=== PATIENT | male | born 1995 | race Caucasian/White ===

== ENCOUNTER 2019-03-21 14:19 | Inpatient (IN) | payer OTHER ==
[~2019-03-21] VITALS: Ht 177.8 cm; Wt 68.2 kg
[2019-03-21] MEDS ORDERED: LORazepam 1 MG TABLET PO ONE (15:00)
[2019-03-21 15:34] LABS: BASOPHILS % (AUTO) 0.9 % (0.0-2.0); HEMATOCRIT 51.7 % (41-53); HEMOGLOBIN 17.5 g/dL (13.5-17.5); LYMPHOCYTES # (AUTO) 1.4 K/uL (1.0-4.8); LYMPHOCYTES % (AUTO) 29.1 % (22.0-44.0); MEAN CORPUSCULAR HGB CONC 33.7 G/dL (31.0-37.0); MEAN CORPUSCULAR VOLUME 92 fL (80-100); MONOCYTES # (AUTO) 0.5 K/uL (0.1-1.0); MONOCYTES % (AUTO) 10.4 % (2.0-9.0); NEUTROPHILS # (AUTO) 2.8 K/uL (1.8-7.7); NEUTROPHILS % (AUTO) 57.6 % (40.0-70.0); PLATELET COUNT (AUTO) 355 K/uL (150-450); RED BLOOD CELL COUNT(AUTO) 5.63 MIL/uL (4.50-5.90)
[2019-03-21 15:41] LABS: INR 1.1 (0.9-1.1); PROTHROMBIN TIME 11.2 SEC (9.4-11.6)
[2019-03-21 15:46] LABS: ANION GAP 6 mmol/L (8-16); CALCIUM, TOTAL 9.7 mg/dL (8.8-10.5); CARBON DIOXIDE 31 mmol/L (22-29); CHLORIDE 104 mmol/L (98-107); CREATININE 1.04 mg/dL (0.60-1.30); GLOMERULAR FILTR. RATE CALC > 60 mL/min (>60); GLUCOSE,RANDOM 77 mg/dL (70-110); POTASSIUM 4.3 mmol/L (3.5-5.1); SODIUM SERUM 141 mmol/L (136-145); UREA NITROGEN, BLOOD 10 mg/dL (7-18)
[2019-03-21 15:57] LABS: B-TYPE NATRIURETIC PEPTIDE < 5 pg/mL (0-100)
[2019-03-21 16:12] LABS: ALANINE AMINOTRANSFERASE 21 U/L (12-78); ALBUMIN 4.7 g/dL (3.4-5.0); ALKALINE PHOSPHATASE 58 U/L (46-116); ASPARTATE AMINOTRANSFERASE 17 U/L (15-37); BILIRUBIN,TOTAL 2.2 mg/dL (0.1-1.0); CREATINE KINASE, TOTAL ONLY 131 U/L (39-308); TOTAL PROTEIN, SERUM 8.4 g/dL (6.4-8.2)
[2019-03-21] MEDS ORDERED: SODIUM CHLORIDE 0.9% 1,000 ML IV ONE (16:15)
[2019-03-21] MEDS ORDERED: LORazepam 1 MG TABLET PO PRN ×2 (16:15→18:45)
[2019-03-21 19:40] VITALS: BP 120/67
[2019-03-21 23:24] VITALS: BP 113/59
[2019-03-22 05:02] VITALS: BP 128/63
[2019-03-22 08:00] VITALS: BP 117/65
[2019-03-22] MEDS: MULTIVITAMINS WITH MINERALS, THERAPEUTIC TABLET PO SCH (09:00)
[2019-03-22] MEDS ORDERED: MULTIVITAMINS WITH MINERALS, THERAPEUTIC TABLET PO SCH (09:00)
[2019-03-22 11:27] VITALS: BP 117/70
[2019-03-22 15:29] VITALS: BP 118/61
[2019-03-22] MEDS ORDERED: QUEtiapine FUMARATE 25 MG TABLET PO PRN (18:30)
[2019-03-22 19:31] VITALS: BP 114/62
[2019-03-22] MEDS ORDERED: QUEtiapine FUMARATE 100 MG TABLET PO SCH (21:00)
[2019-03-22] MEDS ORDERED: PARoxetine HCL 20 MG TABLET PO SCH (21:00)
[2019-03-23 00:16] VITALS: BP 109/57
[2019-03-23 04:20] VITALS: BP 120/64
[2019-03-23 08:30] VITALS: BP 134/70
[2019-03-23] MEDS: MULTIVITAMINS WITH MINERALS, THERAPEUTIC TABLET PO SCH (09:07)
[2019-03-23 12:50] VITALS: BP 116/74
[2019-03-23 16:36] VITALS: BP 124/61
[2019-03-23] MEDS ORDERED: PARO10OR3 PO (17:07)
[2019-03-23] MEDS ORDERED: QUET100T PO ×2 (17:09→17:12)
[2019-03-23] MEDS ORDERED: QUET25TA PO (17:11)
[2019-03-23] MEDS ORDERED: PARO20TA24 PO (17:11)
== END 2019-03-23 18:11 | DRG 885 ==
LOC: EMS 14:20 → 6S 16:38 → EMS 17:48
PROVIDERS: ADMIT Internal Medicine; ATTEND Internal Medicine
DX: F33.2 Major depressive disorder, recurrent severe without psychotic features (principal); R45.851 Suicidal ideations; R07.89 Other chest pain; F15.10 Other stimulant abuse, uncomplicated; F41.9 Anxiety disorder, unspecified; F11.90 Opioid use, unspecified, uncomplicated; Z79.899 Other long term (current) drug therapy
CPT/HCPCS: 93005; 93306; J7030